=== PATIENT | female | born 2005 | race African-American/Black ===

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

== ENCOUNTER 2024-11-03 07:04 | Emergency (ER) | payer MEDICAID, OTHER ==
[~2024-11-03] VITALS: Ht 165.1 cm; Wt 55.3 kg
[2024-11-03 07:07] VITALS: TEMP 97.8
--- NOTE | 2024-11-03 07:26 | ED.PDOC ---
General HPI Comments 19 y/o F, with PMHx of UTI's presents to the ED for CC of pelvic pain. Patient states, she has sharp "razor blade like" pelvic pain with associated dysuria sudden onset, yesterday (11/02/24). Patient reports, she is currently taking Macrobid for a UTI and just commenced the course of Abx yesterday (11/02/24). Patient's LMP began yesterday (11/02/24) and is currently menstruating. Patient comments, her last sexual intercourse to have been x3days ago. Patient denies fever, chills, frequency, hematuria, or vaginal discharge. No other symptoms or modifying factors present at this time. Chief Complaint: Pelvic Pain Time Seen by MD: 07:25 Primary Care Provider: LENORA Reviewed notes: Nurses Notes, Medications, Allergies Allergies: Coded Allergies: NO KNOWN ALLERGIES (Unverified , 11/03/18) Home Meds Active Scripts Nitrofurantoin Monohydrate Mac (Macrobid) 100 Mg Cap, 100 MG PO BID for 10 Days, #20 CAP Prov:NEERAJ YEBOAH MD 11/03/24 Information Source: Patient Mode of Arrival: Ambulatory Severity: Moderate Timing: Days Duration: Since onset Prehospital treatment: None Onset: Spontaneous Symptoms: None History of: UTI Location: None associated signs and symptoms: Other (pelvic pain) Past Medical History PAST MEDICAL HISTORY: UTI'S Surgical History: Denies all surgeries WELLNESS DIRECTOR History: No Pertinent WELLNESS DIRECTOR History Family History Family History: Reviewed,noncontributory to illness, No family hx of Cancer, No family hx of DM, No family hx of Heart ric, No family hx of HTN, No family hx ofKidney ric, No family hx of Liver ric, No family hx of Lung ric, No family hx of Stroke Social History Smoker: Non-Smoker Alcohol: Denies ETOH Use Drugs: Denies Drug Use Lives In: Home Constitutional: denies: chills, diaphoresis, fatigue, fever, malaise, sweats, weakness, others EENTM: denies: blurred vision, double vision, ear bleeding, ear discharge, ear drainage, ear pain, ear ringing, eye pain, eye redness, hearing loss, mouth pain, mouth swelling, nasal discharge, nose bleeding, nose congestion, nose pain, photophobia, tearing, throat pain, throat swelling, voice changes, others Respiratory: denies: cough, hemoptysis, orthopnea, SOB at rest, shortness of breath, SOB with excertion, stridor, wheezing, others Cardiovascular: denies: chest pain, dizzy spells, diaphoresis, Dyspnea on exertion, edema, irregular heart beat, left arm pain, lightheadedness, palpitations, PND, syncope, others Gastrointestinal: denies: abdomen distended, abdominal pain, blood streaked bowels, constipated, diarrhea, dysphagia, difficulty swallowing, hematemesis, melena, nausea, poor appetite, poor fluid intake, rectal bleeding, rectal pain, vomiting, others Genitourinary: reports: dysuria, others (pelvic pain); denies: abnormal vagina bleeding, burning, dyspareunia, flank pain, frequency, hematuria, incontinence, pain, , vagina discharge, urgency Neurological: denies: dizziness, fainting, headache, left sided numbness, left sided weakness, numbness, paresthesia, pre-existing deficit, right sided numbness, right sided weakness, seizure, speech problems, tingling, tremors, weakness, others Musculoskeletal: denies: back pain, gout, joint pain, joint swelling, muscle pain, muscle stiffness, neck pain, others Integumetry: denies: bruises, change in color, change in hair/nails, dryness, laceration, lesions, lumps, rash, wounds, others Allergic/Immunocompromised: denies: Difficulty Healing, Frequent Infections, Hives, Itching, others Hematologic/Lymphatic: denies: anemia, blood clots, easy bleeding, easy bruising, swollen glands, others Endocrine: denies: excessive hunger, excessive sweating, excessive thirst, excessive urination, flushing, intolerance to cold, intolerance to heat, unexplained weight gain, unexplained weight loss, others Psychiatric: denies: anxiety, bipolar disorder, depression, hopeless, panic disorder, schizophrenia, sleepless, suicidal, others All Other Systems: Reviewed and Negative Physical Exam General Appearance: Moderate Distress HEENT: Normal ENT Inspection, Pharynx Normal, TMs Normal Neck: Full Range of Motion, Non-Tender, Normal, Normal Inspection Respiratory: Chest Non-Tender, Lungs Clear, No Accessory Muscle Use, No Respiratory Distress, Normal Breath Sounds Cardiovascular: No Edema, No JVD, No Murmur, No Gallop, Normal Peripheral Pulses, Regular Rate/Rhythm Breast Exam: Deferred Gastrointestinal: No Organomegaly, Non Tender, No Pulsatile Mass, Normal Bowel Sounds, Soft Genitalia: Deferred Pelvic: Deferred Rectal: Deferred Extremities: No calf tenderness, Normal capillary refill, Normal inspection, Normal range of motion, Non-tender, No pedal edema Musculoskeletal : Apperance: Normal Neurologic: Alert, orthotist/prosthetist II-XII nml as Tested, No Motor Deficits, Normal Affect, Normal Mood, No Sensory Deficits Cerebellar Function: Normal Reflexes: Normal Skin: Dry, Normal Color, Warm Peripheral Pulses: 3+ Radial (R), 3+ Radial (L) Lymphatic: No Adenopathy Was a procedure done? Was a procedure done?: No Differential Diagnosis Kidney stone (Female): Musculoskeletal pain, Urinary obstruction, Urolithiasis Kidney stone (Male): N/A Penile/Scrotal: N/A Urinary Problem (Male): N/A Urinary Problem (Female): PID, Pyelonephritis, Urolithiasis, UTI, Other X-Ray, Labs, Meds, VS Vital Signs Date Time Temp Pulse Resp B/P (MAP) Pulse Ox O2 Delivery O2 Flow Rate FiO2 11/03/24 09:33 63 18 100 Room Air 11/03/24 09:33 63 20 135/95 (108) 100 11/03/24 07:07 97.8 108 20 139/108 99 97.8 Lab Test 11/03/24 07:24 Range/Units Urine Color Red H Yellow Urine Clarity Ex.turbid Clear Urine pH 6.0 5.0-9.0 Urine Specific [place] 1.026 1.001-1.035 Urine Protein 2+ H Negative Urine Ketones Negative Negative Urine Blood 3+ H Negative /uL Urine Nitrite Negative Negative Urine Bilirubin Negative Negative Urine Urobilinogen Normal Negative mg/dL Urine Leukocyte Esterase 2+ Negative /uL Urine RBC [id number] 0 - 4 /hpf Urine Microscopic WBC 655 H 0-5 /HPF Urine Squamous Epithelial Cells Many <5 /hpf Urine Bacteria Few H None Seen /hpf Urine Glucose Normal Normal mg/dL Current Medications Medications (Trade) Dose Ordered Sig/Lindsey Route Start Time Stop Time Status Last Admin Acetaminophen/ Hydrocodone Bitart ([place] 10/325MG Tab) 1 tab ONCE ONCE PO 11/03/24 07:45 11/03/24 07:46 DC 11/03/24 07:46 Patient alert. Complaining of pelvic discomfort. Vitals stable. Answering all questions. Ambulating. Was given [place]. Saturation pristine on room air. No leg swelling No shortness a breath. No chest pain. Urinalysis shows UTI. Was given prescription of Macrobid antibiotic. Explained to the patient. Was told to follow up primary care physician. Was told to come back if there is any problem. Time of 1ST Reevaluation: 07:55 Reevaluation 1ST: Improved Patient Education/Counseling: Diagnosis, Treatment Family Education/Counseling: No Family Present SEPSIS Sepsis Screen Date sepsis recognized/suspect: Nov 03, 2024 Time Sepsis recognized/suspect: 706 Recent Procedure: No On Antibiotic Therapy: Yes (MACROBID) Respiratory Rate >20: No Heart Rate >90: Yes Temp<36 C (96.8 F) or >38.3 C: No SBP <90 or MAP <65 mmHG: No New Acute Mental Status Change: No Is the patient on CPAP, BIPAP,: No Vital Signs Date Time Temp Pulse Resp B/P (MAP) Pulse Ox O2 Delivery O2 Flow Rate FiO2 11/03/24 09:33 63 18 100 Room Air 11/03/24 09:33 63 20 135/95 (108) 100 11/03/24 07:07 97.8 108 20 139/108 99 97.8 Medications Medications Dose Ordered Sig/Lindsey Route Start Time Stop Time Status Last Admin Dose Admin Acetaminophen/ Hydrocodone Bitart 1 tab ONCE ONCE PO 11/03/24 07:45 11/03/24 07:46 DC 11/03/24 07:46 Departure 1 Departure Time of Disposition: 08:09 Impression: Primary Impression: UTI (urinary tract infection) Qualified Codes: N30.00 - Acute cystitis without hematuria Disposition: 01 HOME / SELF CARE / HOMELESS Condition: Good e-Prescriptions Nitrofurantoin Monohydrate Mac (Macrobid) 100 Mg Cap 100 MG PO BID for 10 Days, #20 CAP Prov: NEERAJ YEBOAH MD 11/03/24 Discharged With: Self Critical Care Note Critical Care Time?: No Stability Stability form required: No Heart Score Heart Score: Heart Score Response (Comments) Value History N/A 0 EKG N/A 0 Age N/A 0 Risk Factors N/A 0 Troponin N/A 0 Total 0 I personally scribed for NEERAJ YEBOAH MD ([email or web address]) on 11/03/24 at 07:26. Electronically submitted by Irina Gould ([email or web address]). I personally scribed for NEERAJ YEBOAH MD ([email or web address]) on 11/03/24 at 07:27. Electronically submitted by Irina Gould ([email or web address]). NEERAJ YEBOAH MD Nov 03, 2024 07:26
[2024-11-03] MEDS: HYDROcodone-ACET 10/325MG TAB PO ONE (07:46)
[2024-11-03 08:26] LABS: Urine Protein, UAD 2+ (Negative)
[2024-11-03 09:33] VITALS: BP 135/95; PULSE 63; RESP 18; O2SAT 100
[2024-11-03] MEDS ORDERED: NITR-87 PO (09:51)
== END 2024-11-03 10:26 | disposition home or self-care (01) ==
LOC: ER 07:04
DX: N39.0 Urinary tract infection, site not specified (principal)
CPT/HCPCS: 81001